=== PATIENT | female | born 1960 | race Caucasian/White ===

== ENCOUNTER 2021-01-14 13:57 | Emergency (ER) | payer SELFPAY ==
[~2021-01-14] VITALS: Ht 170.2 cm; Wt 73.5 kg
[2021-01-14 14:02] VITALS: BP 130/89
[2021-01-14 15:07] VITALS: BP 126/85
[2021-01-14] MEDS ORDERED: KETOROLAC 30MG VIAL (30MG/ML) ONE (15:28)
[2021-01-14] MEDS ORDERED: PHENAZOPYRIDINE HCL 200 MG TABLET ONE (15:29)
[2021-01-14 15:36] LABS: BASOPHILS % (AUTO) 0.9 % (0.0-5.0); EOSINOPHILS % (AUTO) 2.3 % (0.0-8.0); HEMATOCRIT 43.9 % (36-48); LYMPHOCYTES % (AUTO) 23.9 % (21.0-51.0); MEAN CORPUSCULAR HEMOGLOBIN 33.5 pg (27.0-33.0); MEAN CORPUSCULAR HGB CONC 33.3 g/dL (32.0-36.0); MEAN CORPUSCULAR VOLUME 100.7 fL (79-99); MONOCYTES % (AUTO) 9.2 % (3.0-13.0); NEUTROPHILS % (AUTO) 63.3 % (40.0-77.0); PLATELET COUNT (AUTO) 331 K/uL (130-400); RED BLOOD CELL COUNT(AUTO) 4.36 MIL/uL (4.00-5.50); RED CELL DISTRIBUTION WIDTH 12.7 % (11.0-15.5)
[2021-01-14 15:47] LABS: CREATININE 0.7 mg/dL (0.5-1.5); POTASSIUM 3.6 mmol/L (3.5-5.1)
[2021-01-14 15:51] LABS: ALBUMIN 3.8 g/dL (3.5-5.0); TOTAL PROTEIN, SERUM 7.5 g/dL (6.0-8.3)
[2021-01-14] MEDS ORDERED: PHENAZOPYRIDINE HCL 200 MG TABLET PO ONE (16:00)
[2021-01-14] MEDS ORDERED: KETOROLAC 30MG VIAL (30MG/ML) IM ONE (16:00)
[2021-01-14 16:09] LABS: APPEARANCE,URINE Cloudy (CLEAR); BILIRUBIN,URINE Small (NEGATIVE); COLOR,URINE Dark Yellow (YELLOW); GLUCOSE, URINE (UA) Negative (NEGATIVE); KETONES,URINE 15 mg/dL (NEGATIVE); LEUKOCYTE ESTERASE ,URINE Moderate (NEGATIVE); NITRATE,URINE Positive (NEGATIVE); OCCULT BLOOD,URINE Large (NEGATIVE); PROTEIN,URINE POS 2+ mg/dL (NEGATIVE)
[2021-01-14 16:15] VITALS: BP 125/90
[2021-01-14 16:36] LABS: BACTERIA,URINE Moderate /HPF (None Seen); MUCUS,URINE Few LPF (None Seen); SQUAMOUS EPITHELIAL CELL,UR Few /HPF (0-2)
[2021-01-14] MEDS ORDERED: LEVOFLOXACIN 500 MG TABLET PO ONE (16:50)
[2021-01-14 17:17] VITALS: BP 128/88
[2021-01-14] MEDS ORDERED: IBUP-2070 PO (17:29)
[2021-01-14] MEDS ORDERED: PHEN-847 PO (17:29)
[2021-01-14] MEDS ORDERED: CIPR500T10 PO (17:29)
== END 2021-01-14 17:36 | disposition home or self-care (01) ==
LOC: EDH 13:57
DX: N39.0 Urinary tract infection, site not specified (principal); R10.9 Unspecified abdominal pain; I10 Essential (primary) hypertension; E78.00 Pure hypercholesterolemia, unspecified; Z98.890 Other specified postprocedural states; Z88.1 Allergy status to other antibiotic agents; Z72.0 Tobacco use
CPT/HCPCS: 36415; 74176; 80053; 81001; 83690; 85025; 87077; 87088; 87186; 96372; 99284; J1885

== ENCOUNTER 2021-10-15 09:31 | Emergency (ER) | payer OTHER, SELFPAY ==
[~2021-10-15] VITALS: Ht 170.2 cm; Wt 73.5 kg
[~2021-10-15 09:31] MED LIST: CIPR500T10 PO; IBUP-2070 PO; PHEN-847 PO
[2021-10-15] MEDS ORDERED: HYDROCODONE/ACETAMINOPHEN 5/325 MG TAB PO ONE (10:00)
[2021-10-15] MEDS ORDERED: MORPHINE 4 MG SYG IM ONE (11:30)
[2021-10-15] MEDS ORDERED: ACET-2079 PO (11:33)
[2021-10-15 12:07] VITALS: BP 135/74
== END 2021-10-15 12:13 | disposition home or self-care (01) ==
LOC: EDH 09:31
DX: S80.02XA Contusion of left knee, initial encounter (principal); E78.00 Pure hypercholesterolemia, unspecified; I10 Essential (primary) hypertension; M81.0 Age-related osteoporosis without current pathological fracture; Z79.1 Long term (current) use of non-steroidal anti-inflammatories (NSAID); Z88.1 Allergy status to other antibiotic agents; W18.39XA Other fall on same level, initial encounter; Y93.89 Activity, other specified; Y92.89 Other specified places as the place of occurrence of the external cause; Y99.8 Other external cause status
CPT/HCPCS: 72170; 73564; 96372; 99284; J2270